=== PATIENT | female | born 1990 | race Caucasian/White ===

== ENCOUNTER 2021-10-26 19:19 | Emergency (ER) | payer OTHER ==
[~2021-10-26] VITALS: Ht 160 cm; Wt 54.4 kg
[2021-10-26] MEDS ORDERED: SERTRALINE HCL100 MG PO (19:35)
[2021-10-26] MEDS ORDERED: BIRTH CONTROL (19:35)
[2021-10-26 19:45] LABS: SQUAMOUS >10 Many /LPF (0-3); URINE RBC 0-2 Rare /HPF (0-2); URINE WBC-REFLEX 0-5 Rare /HPF (0-5)
[2021-10-26 19:46] LABS: BACTERIA-REFLEX 1-9 Few /HPF (None Seen); CASTS None Seen /LPF (None Seen); CRYSTALS None Seen /LPF (None Seen); MUCUS None Seen strn/LPF (None Seen)
[2021-10-26 20:22] LABS: HEMATOCRIT 39.6 % (37.0-47.0); HEMOGLOBIN 13.5 gm/dL (12.0-15.0); MCH 29.1 pg (26.0-34.0); MCV 85.5 fL (80.0-100.0); MPV 8.6 fl. (7.2-11.1); NUCLEATED RBCS 0 /100WBC; PLATELET COUNT* 156 thou/uL (150-400); RBC 4.63 mil/uL (4.20-5.00)
[2021-10-26 20:32] LABS: CALCIUM 8.3 mg/dL (8.5-10.1); CREATININE 0.8 mg/dL (0.6-1.3); POTASSIUM 4.1 mmol/L (3.5-5.1)
[2021-10-26 20:46] LABS: ABSOLUTE LYMPHOCYTES 0.6 thou/uL (0.8-5.3); ABSOLUTE MONOCYTES 0.2 thou/uL (0.0-1.2); ABSOLUTE NEUTROPHILS 6.2 thou/uL (1.6-8.1)
[2021-10-26 20:47] LABS: PLATELET ESTIMATE ADEQUATE
[2021-10-26] MEDS ORDERED: ZOFRAN ODT4 MG PO (21:02)
[2021-10-26] MEDS ORDERED: MACROBID 100 M100 M1 PO (21:02)
[2021-10-26 21:17] VITALS: BP 112/73
== END 2021-10-26 21:17 | disposition home or self-care (01) ==
LOC: M.ERS 19:19
PROVIDERS: Emergency Medicine
DX: R19.7 Diarrhea, unspecified (principal); R30.0 Dysuria; Z79.899 Other long term (current) drug therapy